=== PATIENT | female | born 1985 | race Caucasian/White ===

== ENCOUNTER 2019-05-01 19:05 | Emergency (ER) | payer OTHER ==
[~2019-05-01] VITALS: Ht 165.1 cm; Wt 83.1 kg
[2019-05-01] MEDS ORDERED: FERR324T5 PO (19:32)
--- NOTE | 2019-05-01 19:32 | NUR ---
VERY PLEASANT YOUNG LADY HERE NOTING THAT AT WORK TODAY SHE BEGAN FEELING FAINT AND LIKE SHE WAS GOING TO PASS OUT, DESCRIBES DIZZY, SLIGHT NAUSEA, PALP WOULD LAST FEW MINUTES, CONTINUED TO COME AND GO SINCE THIS AFTERNOON. MONITOR REVEALS NSR, LAB TO BEDSIDE TO DRAW, SIDE RAIL UP AND CALL LIGHT IN REACH, AWARE OF USE
[2019-05-01 19:45] LABS: BASOPHILS % (AUTO) 1 % (0-1); EOSINOPHILS # (AUTO) 0.11 x10^3/uL (0-0.4); EOSINOPHILS % (AUTO) 1 % (1-7); LYMPHOCYTES # (AUTO) 2.88 x10^3/uL (1-3.4); LYMPHOCYTES % (AUTO) 27 % (22-44); MD NO; MEAN CORPUSCULAR HEMOGLOBIN 29.9 pg (27.0-34.8); MEAN CORPUSCULAR HGB CONC 32.6 g/dL (32.4-35.8); MEAN CORPUSCULAR VOLUME 91.8 fL (80-100); MEAN PLATELET VOLUME 7.8 fL (7.4-10.4); MONOCYTES # (AUTO) 0.65 x10^3/uL (0.2-0.8); MONOCYTES % (AUTO) 6 % (2-9); NEUTROPHILS # (AUTO) 6.81 x10^3/uL (1.8-6.8); NEUTROPHILS % (AUTO) 65 % (42-75); PLATELET COUNT 397 x10^3/uL (130-400); RED BLOOD COUNT 4.54 x10^6/uL (3.82-5.3); RED CELL DISTRIBUTION WIDTH 16.3 % (9.6-15.2)
[2019-05-01 19:54] LABS: ALBUMIN 4.2 g/dL (3.4-5.0); ANION GAP 8 mmol/L (5-15); CALCIUM 9.6 mg/dL (8.5-10.1); CHLORIDE 107 mmol/L (98-107); CREATININE 0.83 mg/dL (0.55-1.02)
[2019-05-01 19:58] LABS: TROPONIN I < 0.015 ng/mL (0.000-0.045)
[2019-05-01 20:17] VITALS: BP 118/73
== END 2019-05-01 20:19 | disposition home or self-care (01) ==
LOC: ED 20:13
DX: R55 Syncope and collapse (principal); R51 Headache; R42 Dizziness and giddiness; R11.0 Nausea
CPT/HCPCS: 36415; 70450; 80048; 82040; 84443; 84484; 84703; 85025; 93005; 99284